=== PATIENT | female | born 1980 | race Two or more races ===

== ENCOUNTER 2021-01-11 11:51 | Emergency (ER) | payer SELFPAY ==
[~2021-01-11] VITALS: Ht 157.5 cm; Wt 68.5 kg
[2021-01-11 13:02] LABS: Basophils # (auto) 0.1 10 ^3/uL (0-0.2); Basophils % (auto) 0.8 % (0.0-2.0); Eosinophils # (auto) 0.2 10 ^3/uL (0-0.8); Eosinophils % (auto) 2.1 % (0.0-7.0); Hematocrit 40.5 % (36.0-46.0); Hemoglobin 13.7 g/dL (12.2-16.2); Lymphocytes # (auto) 1.4 10 ^3/uL (0.4-5.4); Lymphocytes % (auto) 17.6 % (10.0-50.0); Mean Corpuscular Hgb Conc. 33.7 g/dL (32.0-36.0); Monocytes # (auto) 0.3 10 ^3/uL (0-1.3); Monocytes % (auto) 3.8 % (0.0-12.0); Neutrophils # (auto) 5.9 10 ^3/uL (1.6-8.6); Neutrophils % (auto) 75.7 % (37.0-80.0); Platelet Count (auto) 236 10^3/uL (140-450); Red Blood Cells 4.55 10^6/uL (4.0-5.20); Red Cell Distribution Width 13.3 % (11.8-14.3); White Blood Cell 7.8 10^3/uL (4.4-10.8)
[2021-01-11 13:24] LABS: Potassium 3.6 mmol/L (3.5-5.1)
[2021-01-11 13:32] LABS: Albumin 3.7 g/dL (3.4-5.0); BUN/Creatinine Ratio 12.9; Bilirubin, Total 0.6 mg/dL (0.2-1.0); Calcium 9.1 mg/dL (8.5-10.1); Total Protein 7.8 g/dL (6.4-8.2)
[2021-01-11 16:17] LABS: Urine Bacteria NONE SEEN /hpf (None Seen); Urine Blood 3+ /uL (Negative); Urine WBC 2 /hpf (0 - 5)
[2021-01-11 16:21] VITALS: BP 143/82
== END 2021-01-11 16:22 | disposition home or self-care (01) ==
LOC: ER 11:51
DX: K80.80 Other cholelithiasis without obstruction (principal); B19.9 Unspecified viral hepatitis without hepatic coma
CPT/HCPCS: 36415; 74176; 76705; 80053; 81001; 83690; 85025

== ENCOUNTER 2022-02-19 12:22 | Emergency (ER) | payer MEDICAID ==
[~2022-02-19] VITALS: Ht 157.5 cm; Wt 65.8 kg
[2022-02-19 13:16] VITALS: BP 147/79
[2022-02-19 16:42] LABS: Urine Bacteria FEW /hpf (None Seen); Urine Blood 1+ /uL (Negative); Urine Specific Gravity 1.002 (1.001-1.035); Urine WBC 6 /hpf (0 - 5)
[2022-02-19] MEDS ORDERED: IBUP800T27 PO (16:58)
[2022-02-19] MEDS ORDERED: SULF400T11 PO (16:58)
== END 2022-02-19 17:04 | disposition home or self-care (01) ==
LOC: ER 12:22
DX: N39.0 Urinary tract infection, site not specified (principal); M94.0 Chondrocostal junction syndrome [Tietze]; Z90.49 Acquired absence of other specified parts of digestive tract
CPT/HCPCS: 74176; 81001; 93005